=== PATIENT | male | born 1975 | race Caucasian/White ===

== ENCOUNTER → 2019-08-31 | Outpatient (CLI) | payer OTHER | LOC: LAB 08:13 | DX: R05 Cough (principal); R06.2 Wheezing; R50.9 Fever, unspecified; R53.83 Other fatigue; M54.9 Dorsalgia, unspecified; Z20.828 Contact with and (suspected) exposure to other viral communicable diseases ==

== ENCOUNTER → 2020-12-18 | Outpatient (REF) | LOC: LAB 08:17 | DX: Z00.00 Encounter for general adult medical examination without abnormal findings (principal); E78.5 Hyperlipidemia, unspecified ==